=== PATIENT | male | born 1975 | race Caucasian/White ===

== ENCOUNTER 2021-08-12 17:20 | Emergency (ER) | payer SELFPAY ==
[2021-08-12] MEDS ORDERED: Orphenadrine 60 MG/2 ML Inj IM ONE (19:03)
[2021-08-12] MEDS ORDERED: Ketorolac 30 MG/ML SDV IM ONE (19:03)
== END 2021-08-12 19:35 | disposition home or self-care (01) ==
LOC: VM.ED 17:20
DX: M54.6 Pain in thoracic spine (principal)
CPT/HCPCS: 96372; 99283; J1885; J2360

== ENCOUNTER 2023-03-02 05:45 | Emergency (ER) | payer SELFPAY ==
[2023-03-02] MEDS ORDERED: ceFAZolin 1 GM Vial IVPUSH ONE (06:06)
[2023-03-02] MEDS ORDERED: Sulfamethoxazole/Trimethoprim 800-160 MG Tab PO ONE (06:07)
[2023-03-02] MEDS ORDERED: Diphtheria,Pertussis(Acell),Tetanus Vaccine 0.5 ML Syringe IM ONE (06:13)
[2023-03-02] MEDS ORDERED: ceFAZolin 1 GM Vial IM ONE (06:20)
== END 2023-03-02 06:55 | disposition home or self-care (01) ==
LOC: VM.ED 05:45
DX: L03.116 Cellulitis of left lower limb (principal); Z23 Encounter for immunization
CPT/HCPCS: 90471; 90715; 96372; 99283; 99283-25; A9270-GY; J0690